=== PATIENT | female | born 1995 | race Caucasian/White ===

== ENCOUNTER 2022-08-18 14:03 | Emergency (ER) | payer OTHER ==
[~2022-08-18] VITALS: Ht 170.2 cm; Wt 59.0 kg
[2022-08-18 17:30] VITALS: BP 118/68
== END 2022-08-18 17:35 | disposition home or self-care (01) ==
LOC: ER 14:03
DX: S13.4XXA Sprain of ligaments of cervical spine, initial encounter (principal); F07.81 Postconcussional syndrome; V49.9XXA Car occupant (driver) (passenger) injured in unspecified traffic accident, initial encounter; Y93.89 Activity, other specified; Y92.410 Unspecified street and highway as the place of occurrence of the external cause; Y99.8 Other external cause status
CPT/HCPCS: 70450-TC; 72125-TC

== ENCOUNTER 2024-11-26 22:00 | Emergency (ER) | payer OTHER | END 2024-11-27 02:13 | disposition left against medical advice (07) | LOC: ER 22:05 | DX: H92.09 Otalgia, unspecified ear (principal); Z53.21 Procedure and treatment not carried out due to patient leaving prior to being seen by health care provider ==